=== PATIENT | male | born 1975 | race Caucasian/White ===

== ENCOUNTER 2020-07-24 12:58 | Emergency (ER) | payer MEDICAID, SELFPAY ==
[2020-07-24 13:24] VITALS: BP 150/91; PULSE 98; RESP 17; TEMP 36.8; O2SAT 95; BMI 29.5
[2020-07-24 13:42] LABS: Basophils % 0.3 % (0.1-2.0); Eosinophils # 0.1 K/mm3 (0.0-0.4); Eosinophils % 0.5 % (0.1-12.0); Hematocrit 45.6 % (42.0-52.0); Hemoglobin 15.4 g/dL (14.1-18.0); Lymphocytes # 1.8 K/mm3 (0.7-4.5); Lymphocytes % 12.3 % (10-50); Mean Corpuscular HGB Conc 33.7 g/dL (31.8-35.4); Mean Corpuscular Hemoglobin 29.1 pg (27.0-31.2); Mean Corpuscular Volume 86.2 fl (80-94); Mean Platelet Volume 10.1 fl (7.4-10.4); Monocytes # 0.7 K/mm3 (0.1-1.0); Monocytes % 4.7 % (1.7-9.3); Neutrophils % 82.2 % (37.0-80.0); Platelet Count 219 K/mm3 (142-424); Red Blood Count 5.29 M/mm3 (4.60-6.20); Red Cell Distribution Width 13.6 % (11.5-17.5); White Blood Count 14.6 K/mm3 (4.8-10.8)
[2020-07-24 13:50] LABS: Alanine Aminotransferase 24 U/L (12-78); Albumin Level 4.3 g/dl (3.5-5.0); Albumin/Globulin Ratio 1.1 (1.1-1.8); Alkaline Phosphatase 84 U/L (38-126); Anion Gap 12.9 mEq/L (5-15); Aspartate Amino Transferase 30 U/L (17-59); Bilirubin,Total 0.6 mg/dl (0.2-1.3); Blood Urea Nitrogen 17 mg/dl (9-20); Calcium 9.5 mg/dl (8.4-10.2); Carbon Dioxide 28 mmol/L (22.0-30.0); Chloride 106 mmol/L (98-107); Creatinine Clearance Estimated 122 mL/min (50-200); Estimated Glomerular Filt Rate 82 ml/min (>60); GFR (African American) 99 ML/MIN (>60); Globulin 3.9 g/dL (1.3-3.2); Glucose 119 mg/dl (74-100); Lactic Acid 1.2 mmol/L (0.7-2.1); Potassium 3.9 mmoL/L (3.5-5.1); Sodium 143 mmol/L (136-145); Total Protein,Serum 8.2 g/dl (6.3-8.2)
--- NOTE | 2020-07-24 15:15 | [facility].EDSKAF ---
ED Disposition Clinical Impression: Abscess of right axilla Cellulitis Qualifiers: Site of cellulitis: trunk Site of cellulitis of trunk: chest wall Qualified Code(s): L03.313 - Cellulitis of chest wall Disposition: Home, Self-Care Condition on Discharge: Good Instructions: DI for Skin Abscess Prescriptions: Sulfamethoxazole/Trimethoprim [Bactrim DS tablet] 1 each PO BID 10 Days #20 tab Prescription Printed cephALEXin [Keflex 500mg Cap] 500 mg PO QID 10 Days #40 cap Prescription Printed Referrals: Provider,Referral, [Primary Care Provider] - - Critical Care Critical Care Time: No Attestation: On 07/24/20, the high probability of a clinically significant, sudden or life threatening deterioration of the following system(s) required my full and direct attention, intervention and personal management. The time I documented below is in addition to time spent performing reported procedures but includes the following listed in this critical care notation. Medical Decision Making - Medical Records Medical records reviewed: Yes: I reviewed the patient's medical records. - Fredo Inquiry Pt receiving controlled substance: No Vital Signs: 07/24/20 13:24 Temperature 98.2 F Temperature Source Oral Pulse Rate [Right Radial] 98 H Respiratory Rate 17 Blood Pressure [Right Arm] 150/91 H Blood Pressure Mean [Right Arm] 110 02 Sat by Pulse Oximetry 95 Oxygen Delivery Method Room Air - Lab Data Lab Results 07/24/20 13:15: WBC 14.6 H, RBC 5.29, Hgb 15.4, Hct 45.6, MCV 86.2, MCH 29.1, MCHC 33.7, RDW 13.6, Plt Count 219, MPV 10.1, Neut % (Auto) 82.2 H, Lymph % (Auto) 12.3, Hardy % (Auto) 4.7, Eos % (Auto) 0.5, Baso % (Auto) 0.3, Neut # (Auto) 12.0 H, Lymph # (Auto) 1.8, Hardy # (Auto) 0.7, Eos # (Auto) 0.1, Baso # (Auto) 0.0 07/24/20 13:15: Sodium 143, Potassium 3.9, Chloride 106, Carbon Dioxide 28, Anion Gap 12.9, BUN 17, Creatinine 1.00, Estimated Creat Clear 122, Estimated GFR 82, Est GFR ( Amer) 99, Glucose 119 H, Calcium 9.5, Total Bilirubin 0.6, AST 30, ALT 24, Alkaline Phosphatase 84, Total Protein 8.2, Albumin 4.3, Globulin 3.9 H, Albumin/Globulin Ratio 1.1 07/24/20 13:15: Lactate 1.2 Result diagrams: 07/24/20 13:15 07/24/20 13:15 Orders (Tests/Meds): ED MEDICATIONS Generic Name Dose Route Start Last Admin Trade Name Freq PRN Reason Stop Dose Admin Ceftriaxone Sodium 1 gm/ 50 mls @ 100 mls/hr 07/24/20 14:45 07/24/20 15:06 Sodium Chloride IV 08/07/20 14:44 100 mls/hr Q24H CARLOS Administration Protocol Discontinued Medications Generic Name Dose Route Start Last Admin Trade Name Freq PRN Reason Stop Dose Admin Ketorolac Tromethamine 30 mg 07/24/20 13:53 07/24/20 14:19 Ketorolac 30mg/Ml Vial IV 07/24/20 13:54 30 mg ONCE ONE Administration ORDERS Category Date Time Status Blood Culture Stat Micro 07/24/20 13:15 Received - Reevaluation(s) Time: 15:19 Reevaluation #1: On reevaluation, patient tolerated procedure well. Packing was placed. Sterile dressing placed. Patient will be placed on dual therapy antibiotics. Needs to follow-up with PCP in 48 hours or return to the emergency department for evaluation. Patient given strict return precautions. Verbalized understanding. Medical Decision Narrative: 44-year-old male presented to the emergency department with what appears to be an abscess in the right inferior axilla. I did perform bedside ultrasound on the patient. He has approximately 4.3 cm x 3.8 cm area of cobblestoning suggesting cellulitis. He also has a 2.2 cm x 2.9 cm area of fluctuance just underneath the skin. There is 1 small lymph node that appears to be reactive. Patient will require incision and drainage. Skin/Abscess/FB HPI - General Chief complaint: Skin/Abscess/Foreign Body Stated complaint: spot on R under arm Time Seen by Provider: 07/24/20 13:30 Mode of Arrival: Ambulatory Limitations: No Limitations Descr
[2020-07-24 16:22] VITALS: BP 132/74; PULSE 78; RESP 16; TEMP 36.6; O2SAT 98
== END 2020-07-24 16:23 | disposition home or self-care (01) ==
PROVIDERS: Emergency Provider Emergency Medicine
DX: L02.411 Cutaneous abscess of right axilla (principal); Z88.5 Allergy status to narcotic agent; U07.1 COVID-19; Z91.040 Latex allergy status
CPT/HCPCS: 10060; 80053; 83605; 85025; 87040; 96365; 99283